=== PATIENT | female | born 1995 | race Caucasian/White ===

== ENCOUNTER 2019-05-15 14:16 | Outpatient (CLI) | payer MEDICAID ==
[~2019-05-15] VITALS: Ht 157.5 cm; Wt 69.7 kg
[~2019-05-15 14:16] MED LIST: PREN1TAB71 PO
[2019-05-15 14:33] VITALS: Ht 157.5 cm; Wt 69.7 kg
[2019-05-15 14:34] VITALS: BP 103/62; PULSE 86; RESP 20
--- NOTE | 2019-05-15 15:43 | PN ---
Triage Information Date/Time Reason for visit: Oligohydramnios Weeks of Gestation 36.5 /Para 3/2 Objective Vital Signs Date Temp Pulse Resp B/P (MAP) Pulse Ox O2 O2 Flow FiO2 Time Delivery Rate 05/15/19 98.3 86 20 103/62 Room Air 14:34 (76) Assessment/Plan Subjective: 24 year-old at 36.5 weeks gestation presents with low HAIR 4.8 from clinic for BPP. Objective: Vitals: stable General: nad Abdomen: Gravid Electronic moniter: Category 1 Assessment/Plan: 1. Oligohydramnios-BPP 05/25. resolved. Disposition: discharge to home [facility] BERNAL MD May 15, 2019 15:43
--- NOTE | 2019-05-15 15:57 | TRIAGE ---
OB Triage Datetime Report Generated by CPN: 05/15/2019 15:57 Datetime: 05/15/2019 15:46 Maternal Assessment Level of Consciousness: Keenly Alert, Responsive DTR's/Clonus: DTRs 1+ Headache: Denies Blurred Vision: No Respiratory Effort: Unlabored Breath Sounds, Left: Clear and Equal Breath Sounds, Right: Clear and Equal Nausea/Vomiting: Denies RUQ Epigastric Pain: Denies Facial Edema: None Labor Evaluation Frequency: NONE Monitor Mode: External Resting Tone [place]: Relaxed Heart Rate FHR Baseline Rate: 135 Monitor Mode: External US Variability: Moderate 6-25 bpm Accelerations: 15X15 Decelerations: None Category: Category I Pain Assessment Pain Scale: 0 Pain Presence: None/Denies Pain Type: N/A Pain Goal: 0 Vaginal Exam Membrane Status: Intact Datetime: 05/15/2019 15:07 EGA: 37.1 Datetime: 05/15/2019 14:44 Stage of : OB Triage Maternal Assessment Level of Consciousness: Keenly Alert, Responsive DTR's/Clonus: DTRs 1+ Headache: Denies Breath Sounds, Left: Clear and Equal Breath Sounds, Right: Clear and Equal Nausea/Vomiting: Denies RUQ Epigastric Pain: Denies Labor Evaluation Frequency: NONE Monitor Mode: External Resting Tone [place]: Relaxed Heart Rate FHR Baseline Rate: 135 Monitor Mode: External US Variability: Moderate 6-25 bpm Accelerations: 15X15 Decelerations: None Category: Category I Pain Assessment Pain Scale: 0 Pain Presence: None/Denies Pain Type: N/A Pain Goal: 0 Vaginal Exam Membrane Status: Intact Datetime: 05/15/2019 14:21 Assessment Type: Triage Maternal Assessment Level of Consciousness: Keenly Alert, Responsive DTR's/Clonus: DTRs 2+; No Clonus Headache: Denies Blurred Vision: No Respiratory Effort: Unlabored; Regular Rhythm; Equal Expansion Breath Sounds, Left: Clear and Equal Breath Sounds, Right: Clear and Equal Nausea/Vomiting: Denies RUQ Epigastric Pain: Denies Lower Extremities Edema: None Degree: None Upper Extremities Edema: None Degree: None Facial Edema: None Fall Risk Assessment History of Falling: (0) No Secondary Diagnosis: (0) No Ambulatory Aid: (0) Bedrest/Nurse Assist IV Therapy: (0) No Gait: (0) Normal/Bedrest/Immobile Mental Status: (0) Oriented to Own Ability Fall Score: 0 Fall Risk Score Definition: No Risk: No action required Datetime: 05/15/2019 14:20 EGA: 37.0 Datetime: 05/15/2019 14:19 Time of Arrival: 05/15/2019 14:08 Arrived By: Ambulatory Arrived From: Office Chief Complaint: NST/BPP for decrease HAIR Movement: Present Contractions: Denies/Absent Vaginal Bleeding: None Patient Complaints: None Initial Plan: US
== END 2019-05-15 15:57 | disposition home or self-care (01) ==
LOC: OBT 14:16 → L-D 14:18 → OBT 15:57
PROVIDERS: ATTEND Obstetrics & Gynecology
DX: O41.03X0 Oligohydramnios, third trimester, not applicable or unspecified (principal); Z3A.36 36 weeks gestation of pregnancy
CPT/HCPCS: 76818; G0463

== ENCOUNTER 2019-05-31 17:42 | Outpatient (CLI) | payer MEDICAID ==
[~2019-05-31] VITALS: Ht 160 cm; Wt 71.8 kg
[2019-05-31 18:56] VITALS: Ht 160 cm; Wt 71.8 kg
[2019-05-31 18:57] VITALS: BP 107/64
--- NOTE | 2019-05-31 20:14 | TRIAGE ---
OB Triage Datetime Report Generated by CPN: 05/31/2019 20:13 Datetime: 05/31/2019 19:55 Labor Evaluation Frequency: 5-8 Monitor Mode: External Duration (sec)2399: 50-120 Quality: Mild Pattern: Normal: <= 5 Contractions in 10 Minutes Resting Tone [place]: Relaxed Contraction Comments: TOCO REMOVED Heart Rate FHR Baseline Rate: 135 Monitor Mode: External US Variability: Moderate 6-25 bpm Accelerations: 15X15 Decelerations: None Category: Category I Comments: US REMOVED Datetime: 05/31/2019 18:54 Stage of : OB Triage Assessment Type: Triage Maternal Assessment DTR's/Clonus: DTRs 2+; No Clonus Headache: Denies Blurred Vision: No Respiratory Effort: Unlabored; Regular Rhythm; Equal Expansion Breath Sounds, Left: Clear and Equal Breath Sounds, Right: Clear and Equal Nausea/Vomiting: Denies RUQ Epigastric Pain: Denies Lower Extremities Edema: None Degree: None Upper Extremities Edema: None Degree: None Facial Edema: None Temperature Route: Oral Fall Risk Assessment History of Falling: (0) No Secondary Diagnosis: (0) No Ambulatory Aid: (0) Bedrest/Nurse Assist IV Therapy: (0) No Gait: (0) Normal/Bedrest/Immobile Mental Status: (0) Oriented to Own Ability Fall Score: 0 Fall Risk Score Definition: No Risk: No action required Monitor Mode: External Monitor Mode: External US Pain Assessment Pain Scale: 0 Pain Presence: None/Denies Datetime: 05/31/2019 18:53 Time of Arrival: 05/31/2019 17:25 EGA: 39.3 Arrived By: Ambulatory Arrived From: Dr. Kaiser Chief Complaint: SENT FROM CLINIC FOR NST BPP EFW Movement: Present Contractions: Denies/Absent Rupture of Membranes: Denies Vaginal Bleeding: None Vaginal Discharge: Denies Recent Sexual Intercouse: Denies Abdominal Trauma: Not Applicable Patient Complaints: Other Datetime: 05/15/2019 15:07 EGA: 37.1 Datetime: 05/15/2019 14:21 Fall Score: 0 Fall Risk Score Definition: No Risk: No action required Datetime: 05/15/2019 14:20 EGA: 37.0
--- NOTE | 2019-06-01 14:42 | PN ---
Triage Information Date/Time Late entry note for exam done for May 31, 2019 Reason for visit: Size less than dates, rule out IUGR Weeks of Gestation 39 weeks and 3 days /Para 3 para 2 Diabetes: none Hypertention: none Additional information 24-year-old G3, P2 with IUP at 39 weeks and 3 days was sent from clinic for ultrasound evaluation due to size less than dates during office visit. Patient denies any leaking of fluid, vaginal bleeding or decreased movement. Noted to have contractions every 5 to 6 minutes. Patient was not feeling good. Objective Vital Signs Date Temp Pulse Resp B/P (MAP) Pulse Ox O2 O2 Flow FiO2 Time Delivery Rate 05/31/19 98.8 107/64 Room Air 18:57 (78) Heart Rate: 130's Heart Rate Comments Category 1 and appropriate for gestational age Contractions q. 5 to 6-minute during monitoring Contractions: < 5 Minutes Apart Exam Appearance: Alert and oriented x4 does not appear to be in any acute distress Abdomen: Soft, gravid, fundal height consider gestational age NST: Category 1, contractions noted q. 45 minutes but patient does not feel it BPP: 05/25 Results/Medications Imaging Results PROCEDURE: US OB biophysical profile. CLINICAL INDICATION: decreased movements, IUGR TECHNIQUE: Multiple sonographic images of the pelvis were obtained. The images were reviewed on a PACS workstation. COMPARISON: FINDINGS: There is a single live intrauterine gestation. Cardiac activity is present with 148 beats per minute. There is a vertex presentation. The placenta is posterior fundal. There is no evidence of placental abruption. HAIR = 8.9 cm. Biophysical profile: movement 2/2 tone 2/2. breathing 2/2 HAIR 2/2 Total 05/25 RPTAT: AA . IMPRESSION: Normal biophysical profile. PROCEDURE: US OB. CLINICAL INDICATION: Size and dates TECHNIQUE: Multiple sonographic images of the pelvis and gravid uterus were obtained. The images were reviewed on a PACS workstation. COMPARISON: No prior studies are available for comparison. FINDINGS: There is a single live intrauterine gestation. Cardiac activity is present with 148 beats per minute. There is a vertex presentation. The placenta is posterior fundal. There is no evidence of placental abruption. HAIR = 8.9 cm. Measurements: BPD = 8.8 cm, 35 weeks and 4 days HC = 31.8 cm, 35 weeks and 5 days AC = 33.2 cm, 37 weeks and 1 day FL = 7.3 cm, 37 weeks and 2 days Gestational Age: AUA estimated gestational age: 36 weeks 3 days LMP estimated gestational age: 39 weeks 3 days AUA estimated date of delivery: 06/25/19 The EFW = 3039 g, 14%ile based on LMP age. RPTAT: AA IMPRESSION: Single live intrauterine gestation of 36 weeks 3 days by ultrasound criteria. Assessment/Plan IUP at 39 weeks and 3 days Size consistent with dates by ultrasound. Estimated weight: 14 percentile testing reassuring No evidence of labor False labor contractions Patient stable for discharge. Advised the patient will continue NST/BPP in 3 days Labor precautions kick counts and follow-up with primary OB office in 48 hours after discharge from the hospital discussed Patient verbalized understanding. All questions answered to patient with satisfaction. FALLON SANCHEZ MD Jun 01, 2019 14:42
== END 2019-05-31 20:03 | disposition home or self-care (01) ==
LOC: L-D 17:42 → OBT 17:42 → L-D 18:30 → OBT 20:03
PROVIDERS: ATTEND Obstetrics & Gynecology
DX: O26.843 Uterine size-date discrepancy, third trimester (principal); Z3A.39 39 weeks gestation of pregnancy
CPT/HCPCS: 76815; 76818

== ENCOUNTER 2019-06-04 14:03 | Inpatient (IN) | payer MEDICAID ==
[~2019-06-04] VITALS: Ht 160 cm; Wt 71.0 kg
[2019-06-04 14:10] VITALS: BP 118/72; PULSE 88; RESP 18
[2019-06-04 14:11] VITALS: Ht 160 cm; Wt 71.0 kg
[2019-06-04] MEDS ORDERED: IBUPROFEN 600 MG TAB PO PRN (14:30)
[2019-06-04] MEDS ORDERED: OXYTOCIN 30 UNITS/LR 500 ML IV SCH ×3 (14:30)
[2019-06-04] MEDS ORDERED: BUTORPHANOL 2 MG INJ IV PRN (14:30)
[2019-06-04] MEDS ORDERED: LIDOCAINE 1% (MPF) 30 ML INJ INJ PRN (14:30)
[2019-06-04] MEDS ORDERED: CARBOPROST 250 MCG INJ IM PRN (14:30)
[2019-06-04] MEDS ORDERED: METHYLERGONOVINE 0.2 MG INJ IM PRN (14:30)
[2019-06-04] MEDS ORDERED: MISOPROSTOL 200 MCG TAB PR PRN (14:30)
[2019-06-04] MEDS ORDERED: OXYTOCIN 30 UNITS/LR 500 ML IV PRN (14:30)
[2019-06-04] MEDS: LACTATED RINGER'S 1,000 ML IV SCH ×3 (15:08→21:44)
[2019-06-04] MEDS ORDERED: LACTATED RINGER'S 1,000 ML IV PRN (20:37)
[2019-06-04] MEDS ORDERED: MINERAL OIL LIGHT 10 ML VIAL TOP PRN (21:00)
[2019-06-04] MEDS ORDERED: FENTAnyl 2MCG/ML-ROPIV 0.2% 100 ML ONE (21:00)
[2019-06-04] MEDS ORDERED: NALOXONE (0.4 MG/ML) INJ IV PRN (21:30)
[2019-06-04] MEDS ORDERED: DIPHENHYDRAMINE 50 MG INJ IV PRN (21:30)
[2019-06-04] MEDS ORDERED: ONDANSETRON 4 MG INJ IV PRN (21:30)
[2019-06-04] MEDS ORDERED: FENTAnyl 2MCG/ML-ROPIV 0.2% 100 ML BAG EPI SCH (21:30)
[2019-06-05] MEDS: LACTATED RINGER'S 1,000 ML IV SCH ×2 (01:16→05:33)
[2019-06-05] MEDS ORDERED: OXYTOCIN 30 UNITS/LR 500 ML IV SCH (07:49)
[2019-06-05] MEDS ORDERED: ACETAMINOPHEN 325 MG TAB PO PRN (08:00)
[2019-06-05] MEDS ORDERED: HYDROCODONE/APAP (5/325) TAB PO PRN (08:00)
[2019-06-05] MEDS ORDERED: BENZOCAINE 20% 56 ML SPRAY TOP PRN ×2 (08:00)
[2019-06-05] MEDS ORDERED: OXYTOCIN 30 UNITS/LR 500 ML IV PRN (08:00)
[2019-06-05] MEDS ORDERED: WITCH HAZEL/GLYCERIN PAD PR PRN ×2 (08:00)
[2019-06-05] MEDS ORDERED: NACL 0.9% 3 ML SYG IV SCH (08:00)
[2019-06-05] MEDS ORDERED: DIPHENHYDRAMINE 25 MG CAP PO PRN (08:00)
[2019-06-05] MEDS ORDERED: CARBOPROST 250 MCG INJ IM PRN (08:00)
[2019-06-05] MEDS ORDERED: MAGNESIUM HYDROXIDE 30ML CUP PO PRN (08:00)
[2019-06-05] MEDS ORDERED: MISOPROSTOL 200 MCG TAB PR PRN (08:00)
[2019-06-05] MEDS ORDERED: METHYLERGONOVINE 0.2 MG INJ IM PRN (08:00)
[2019-06-05] MEDS ORDERED: ONDANSETRON 4 MG INJ IV PRN (08:00)
[2019-06-05] MEDS ORDERED: SENNA/DOCUSATE NA (8.6MG/50MG) TAB PO PRN (08:00)
[2019-06-05] MEDS ORDERED: ZOLPIDEM 5 MG TAB PO PRN (08:00)
[2019-06-05 09:30] VITALS: BP 101/57; PULSE 68; RESP 18
[2019-06-05] MEDS: IBUPROFEN 600 MG TAB PO SCH ×4 (11:33→23:28)
[2019-06-05] MEDS: LANOLIN HPA 1 PKT TOP PRN (11:34)
[2019-06-05 16:21] VITALS: BP 101/59; PULSE 68; RESP 18
[2019-06-05 19:45] VITALS: BP 106/65; PULSE 75; RESP 19
[2019-06-06 04:00] VITALS: BP 96/53; PULSE 70; RESP 18
[2019-06-06] MEDS: IBUPROFEN 600 MG TAB PO SCH ×3 (05:34→17:49)
[2019-06-06 07:30] VITALS: BP 97/52; PULSE 75; RESP 18
[2019-06-06 16:00] VITALS: BP 91/51; PULSE 66; RESP 18
[2019-06-06 20:00] VITALS: BP 94/50; PULSE 72; RESP 18
[2019-06-07] MEDS: IBUPROFEN 600 MG TAB PO SCH ×3 (00:25→12:16)
[2019-06-07] MEDS: LANOLIN HPA 1 PKT TOP PRN (01:07)
[2019-06-07 04:00] VITALS: BP 100/60; PULSE 63; RESP 17
[2019-06-07 08:20] VITALS: BP 98/52; PULSE 61; RESP 16
[2019-06-07] MEDS ORDERED: DIPHTH/TET/ACEL PERTUSS (ADULT) 0.5 ML VIAL IM* ONE (09:00)
[2019-06-07] MEDS ORDERED: MEASLES,MUMPS,RUBELLA VACCINE INJ SC* ONE (09:00)
== END 2019-06-07 16:15 | disposition home or self-care (01) | DRG 807 ==
LOC: OBT 14:03 → L-D 14:04 → PP1 06-05 09:16
PROVIDERS: ADMIT Obstetrics & Gynecology; ATTEND Obstetrics & Gynecology
PROC: 10E0XZZ Delivery of Products of Conception, External Approach (ICD-10-PCS; principal; 2019-06-05)
DX: O80 Encounter for full-term uncomplicated delivery (principal); Z37.0 Single live birth; Z3A.39 39 weeks gestation of pregnancy
CPT/HCPCS: 36600; 62322; 82803; 85014; 85018; 85025; 85610; 85730; 86592; 86850; 86900; 86901; 87340; 99464; G0463; J2590; J3010; J7120